=== PATIENT | female | born 1975 | race Caucasian/White ===

== ENCOUNTER 2022-01-28 17:02 | Emergency (ER) | payer SELFPAY ==
[2022-01-28 17:47] LABS: Urine Blood Negative (Negative); Urine Glucose Negative (Negative); Urine Protein 1+ (Negative); Urine pH >=9.0 (5.0-7.0)
--- NOTE | 2022-01-28 17:57 | RAD REPORT ---
EXAM DESCRIPTION: RAD - Chest Single View - 01/28/2022 5:47 pm CLINICAL HISTORY: abdominal pain Chest pain. COMPARISON: No comparisons FINDINGS: Portable technique limits examination quality. The lungs are mildly emphysematous but grossly clear. The heart is normal in size. No displaced fract ures. IMPRESSION: No acute intrathoracic process suspected.
[2022-01-28 18:02] LABS: Absolute Lymphocytes (CBC) 2.8 K/uL (0.7-4.9); Hematocrit 40.7 % (36.0-45.0); Lymphocytes % 22.9 % (15.3-44.8); MCV 93.3 fL (80-100); MPV 7.9 fL (7.6-11.3); RBC Red Blood Cell Count 4.36 M/uL (3.86-4.86)
[2022-01-28 18:13] LABS: Urine Crystals Unidentified Moderate /HPF (None Seen); Urine RBC <5 /HPF (None Seen)
[2022-01-28 18:15] LABS: Bilirubin Total 1.5 mg/dL (0.2-1.0); Potassium 3.5 mmol/L (3.5-5.1); Protein, Total 8.6 g/dL (6.4-8.2)
[2022-01-28] MEDS ORDERED: HYDROMORPHONE HCL 1 MG/ML INJ ONE (18:21)
--- NOTE | 2022-01-28 19:40 | RAD REPORT ---
EXAM DESCRIPTION: CTAbdomen Pelvis W Contrast - 01/28/2022 7:28 pm CLINICAL HISTORY: Abdominal pain. abdominal pain COMPARISON: No comparisons TECHNIQUE: Biphasic CT imaging of the abdomen and pelvis was performed with 100 ml non-ionic IV cont rast. All CT scans are performed using dose optimization technique as appropriate and may include automated exposure control or mA/KV adjustment according to patient size. FINDINGS: The lung bases are clear.Cholecystectomy. The liver, spleen, pancreas, adrenal glands are within normal limits. Small stones are present in bot h kidneys without hydronephrosis. No bowel obstruction, free air, free fluid or abscess. Sigmoid diverticulosis coli without diverticul itis. The appendix is normal. No evidence of significant lymphadenopathy. No suspicious bony findings. IMPRESSION: Sigmoid diverticulosis coli is present without diverticulitis. Small stones are present in both kidneys without hydronephrosis.
--- NOTE | 2022-01-28 20:14 | ER ---
Nurse's Notes [facility] Name: Sangeetha Iqbal Age: 46 yrs Sex: Female : 1975 Arrival Date: 01/28/2022 Time: 17:02 Bed 13 Private MD: Diagnosis: Diverticulosis of large intestine without perforation or abscess without bleeding Presentation: 01/28 17:11 Chief complaint: Chief complaint: Patient states: Abdominal pain - mid epigastric pain ld1 X 1 hour. N/V/Constipation. 17:12 Coronavirus screen: At this time, the client does not indicate any symptoms associated ld1 with coronavirus-19. Ebola Screen: No symptoms or risks identified at this time. Initial Sepsis Screen: Does the patient meet any 2 criteria? No. Patient's initial sepsis screen is negative. Does the patient have a suspected source of infection? No. Patient's initial sepsis screen is negative. Risk Assessment: Do you want to hurt yourself or someone else? Patient reports no desire to harm self or others. Onset of symptoms was January 28, 2022. 17:12 Method Of Arrival: Ambulatory ld1 17:12 Acuity: ARMANDO 3 ld1 Triage Assessment: 17:12 General: Appears in no apparent distress. uncomfortable, Behavior is anxious, crying, ld1 fussy. Pain: Complains of pain in epigastric area Pain does not radiate. Pain currently is 10 out of 10 on a pain scale. Quality of pain is described as aching, crampy, throbbing. EENT: No signs and/or symptoms were reported regarding the EENT system. Neuro: Level of Consciousness is awake, alert, obeys commands, Oriented to person, place, time, situation. Cardiovascular: Capillary refill < 3 seconds Patient's skin is warm and dry. Respiratory: Airway is patent Respiratory effort is even, unlabored. GI: Abdomen is flat, non-distended, Reports constipation, nausea, vomiting. : No signs and/or symptoms were reported regarding the genitourinary system. Derm: No signs and/or symptoms reported regarding the dermatologic system. Musculoskeletal: No signs and/or symptoms reported regarding the musculoskeletal system. Historical: - Allergies: 17:10 Codeine; ld1 - PMHx: 17:10 Diverticulitis; ld1 - PSHx: 17:10 Cholecystectomy; ld1 - Immunization history:: Adult Immunizations up to date, Client reports receiving the 2nd dose of the Covid vaccine. - Social history:: Smoking status: Patient denies any tobacco usage or history of. Patient uses street drugs, marijuana, Patient/guardian denies using alcohol. Screenin:30 Abuse screen: Denies threats or abuse. Denies injuries from another. Nutritional db screening: No deficits noted. Tuberculosis screening: No symptoms or risk factors identified. Fall Risk None identified. No fall in past 12 months (0 pts). No secondary diagnosis (0 pts). IV access (20 points). Ambulatory Aid- None/Bed Rest/Nurse Assist (0 pts). Gait- Normal/Bed Rest/Wheelchair (0 pts) Mental Status- Oriented to own ability (0 pts). Total Hernandez Fall Scale indicates No Risk (0-24 pts). Assessment: 17:30 Reassessment:. General: Appears distressed, uncomfortable, Behavior is agitated, db anxious, restless. Pain: Complains of pain in abdomen Pain began 1 hour ago. Aggravated by eating, Noted to be agitated, crying, moaning, restless. Neuro: No deficits noted. Level of Consciousness is awake, alert, obeys commands, Oriented to person, place, time, situation, Appropriate for age Gait is steady, Speech is normal, Facial symmetry appears normal. Cardiovascular: No deficits noted. Respiratory: No deficits noted. GI: Bowel sounds present X 4 quads. Abd is soft Abdomen is tender to palpation X 4 quads. : No deficits noted. No signs and/or symptoms were reported regarding the genitourinary system. EENT: No deficits noted. No signs and/or symptoms were reported regarding the EENT system. Derm: No deficits noted. No signs and/or symptoms reported regarding the dermatologic system. Musculoskeletal: No deficits noted. No signs and/or symptoms reported regarding the musculoskeletal system. 18:31 Reassessment: No changes from previously documented assessment. Patient and/or family db updated on plan of care and expected duration. Pain level reassessed. Patient is alert, oriented x 3, equal unlabored respirations, skin warm/dry/pink. Reassessment: patient states still has pain. pain medication administered. 19:49 General: Appears comfortable, Behavior is calm, cooperative. Pain: Complains of pain in ha1 epigastric area Pain does not radiate. Pain currently is 3 out of 10 on a pain scale. Alleviated by medications. Neuro: Level of Consciousness is awake, alert, obeys commands, Oriented to person, place, time, situation, Speech is normal. Cardiovascular: Patient's skin is warm and dry. Respiratory: Airway is patent Trachea midline Respiratory effort is even, unlabored, Respiratory pattern is regular, symmetrical. GI: Bowel sounds present X 4 quads. Abd is soft X 4 quads Reports epigastric pain. : No signs and/or symptoms were reported regarding the genitourinary system. Musculoskeletal: No deficits noted. No signs and/or symptoms reported regarding the musculoskeletal system. Vital Signs: 17:12 BP 129 / 101; Pulse 76; Resp 18; Temp 97.3(O); Pulse Ox 100% on R/A; Weight 66.68 kg; ld1 Height 5 ft. 1 in. (154.94 cm); Pain 10/10; 17:30 BP 162 / 87; Pulse 72; Resp 16; Pulse Ox 98% ; db 18:25 BP 170 / 96; Pulse 62; Resp 20; Pulse Ox 99% ; Pain 10/10; db 18:45 BP 136 / 75; Pulse 62; Resp 12; Pulse Ox 100% ; db 19:49 BP 110 / 72; Pulse 60; Resp 16 S; Pulse Ox 100% on R/A; ha1 17:12 Body Mass Index 27.78 (66.68 kg, 154.94 cm) ld1 [place] Coma Score: 18:25 Eye Response: spontaneous(4). Verbal Response: oriented(5). Motor Response: obeys db commands(6). Total: 15. ED Course: 17:02 Patient arrived in ED. am2 17:06 Ricky Lee PA is PHCP. cp 17:06 Ricky George MD is Attending Physician. cp 17:12 Arm band placed on right wrist. ld1 17:13 Triage completed. ld1 17:20 Almaz Wisdom, MUNA is Primary Nurse. db 17:30 Inserted saline lock: 20 gauge in left antecubital area, using aseptic technique. Blood db collected. 17:48 XRAY Chest (1 view) In Process Unspecified. EDMS 18:25 Patient has correct armband on for positive identification. Placed in gown. Bed in low db position. Side rails up X 1. 19:07 Report given to MUNA Dickey. Pulse ox on. NIBP on. Warm blanket given. db 19:29 CT Abd/Pelvis - IV Contrast Only In Process Unspecified. EDMS 20:13 Shamir Gallo MD is Referral Physician. cp 20:36 No provider procedures requiring assistance completed. IV discontinued, intact, ha1 bleeding controlled, No redness/swelling at site. Pressure dressing applied. Administered Medications: 17:40 Drug: NS 0.9% 1000 ml Route: IV; Rate: 1 bolus; Site: left antecubital; db 17:40 Drug: Pepcid (famotidine) 20 mg Route: IVP; Site: left antecubital; db 18:59 Follow up: Response: No adverse reaction db 17:40 Drug: Zofran (Ondansetron) 4 mg Route: IVP; Site: left antecubital; db 18:59 Follow up: Response: No adverse reaction db 17:40 Drug: Dilaudid (HYDROmorphone) 1 mg Route: IVP; Site: left antecubital; db 18:59 Follow up: Response: No adverse reaction db 18:25 Drug: Dilaudid (HYDROmorphone) 1 mg Route: IVP; Site: left antecubital; db 19:00 Follow up: Response: No adverse reaction db 20:25 Drug: metroNIDAZOLE 500 mg Route: PO; ha1 20:36 Follow up: Response: No adverse reaction ha1 20:25 Drug: Cipro (ciprofloxacin) 500 mg Route: PO; ha1 20:36 Follow up: Response: No adverse reaction ha1 Medication: 17:30 VIS not applicable for this client. db Outcome: 20:14 Discharge ordered by . cp 20:37 Discharged to home ambulatory, with family. ha1 20:37 Condition: stable 20:37 Discharge instructions given to patient, Instructed on discharge instructions, follow up and referral plans. medication usage, Demonstrated understanding of instructions, follow-up care, medications, Prescriptions given X 4. 20:38 Patient left the ED. ha1 Signatures: Dispatcher [employer] EDNY Ricky Lee PA PA cp Rhianna Borrego am2 Bettina Rodríguez RN RN ld1 Keli Sanchez RN RN ha1 Almaz Wisdom RN RN db Corrections: (The following items were deleted from the chart) 17:13 17:11 Chief complaint: ld1 ld1
--- NOTE | 2022-01-28 20:14 | EDPHYS ---
Physician Documentation [facility] Name: Sangeetha Iqbal Age: 46 yrs Sex: Female : 1975 Arrival Date: 01/28/2022 Time: 17:02 Bed 13 Private MD: ANNA MARIE Physician Ricky George HPI: 01/28 17:40 This 46 yrs old Female presents to ER via Ambulatory with complaints of Abdominal Pain. cp 17:40 The patient presents with abdominal pain in the epigastric area, in the upper abdomen. cp Onset: The symptoms/episode began/occurred 1 hour(s) ago. The symptoms do not radiate. Associated signs and symptoms: Pertinent positives: nausea, Pertinent negatives: blood in stools, constipation, diarrhea, dysuria, fever, vomiting. The symptoms are described as constant. Severity of pain: in the emergency department the pain is actually worse markedly. Historical: - Allergies: 17:10 Codeine; ld1 - PMHx: 17:10 Diverticulitis; ld1 - PSHx: 17:10 Cholecystectomy; ld1 - Immunization history:: Adult Immunizations up to date, Client reports receiving the 2nd dose of the Covid vaccine. - Social history:: Smoking status: Patient denies any tobacco usage or history of. Patient uses street drugs, marijuana, Patient/guardian denies using alcohol. ROS: 17:45 Constitutional: Negative for body aches, chills, fever, poor PO intake. cp 17:45 Eyes: Negative for injury, pain, redness, and discharge. cp 17:45 ENT: Negative for drainage from ear(s), ear pain, sore throat, difficulty swallowing, difficulty handling secretions. 17:45 Cardiovascular: Negative for chest pain, edema, palpitations. 17:45 Respiratory: Negative for cough, shortness of breath, wheezing. 17:45 Abdomen/GI: Positive for abdominal pain, nausea, Negative for vomiting, diarrhea, constipation. 17:45 Back: Negative for radiated pain. 17:45 : Negative for urinary symptoms, vaginal bleeding, vaginal discharge. 17:45 Skin: Negative for cellulitis. 17:45 Neuro: Negative for altered mental status, headache, weakness. 17:45 All other systems are negative. Exam: 17:55 Constitutional: The patient appears in no acute distress, alert, awake, non-toxic, well cp developed, well nourished. 17:55 Head/Face: Normocephalic, atraumatic. cp 17:55 Eyes: Periorbital structures: appear normal, Conjunctiva: normal, no exudate, no injection, Sclera: no appreciated abnormality, Lids and lashes: appear normal, bilaterally. 17:55 ENT: External ear(s): are unremarkable, Nose: is normal, Mouth: Lips: moist, Oral mucosa: moist, Posterior pharynx: Airway: no evidence of obstruction, patent. 17:55 Chest/axilla: Inspection: normal, Palpation: is normal, no crepitus, no tenderness. 17:55 Cardiovascular: Rate: normal, Rhythm: regular. 17:55 Respiratory: the patient does not display signs of respiratory distress, Respirations: normal, no use of accessory muscles, no retractions, labored breathing, is not present, Breath sounds: are clear throughout, no decreased breath sounds, no stridor, no wheezing. 17:55 Abdomen/GI: Inspection: distension, is not seen, Bowel sounds: active, all quadrants, Palpation: soft, in all quadrants, severe abdominal tenderness, in the epigastric area, right upper quadrant and left upper quadrant, rebound tenderness, is not appreciated, involuntary guarding, is not appreciated. 17:55 Back: pain, is absent, ROM is normal. 17:55 Neuro: Orientation: to person, place \T\ time. Mentation: is normal, Motor: moves all fours, strength is normal, Sensation: is normal. 17:55 Special observations: complaints out of proportion to exam. Vital Signs: 17:12 BP 129 / 101; Pulse 76; Resp 18; Temp 97.3(O); Pulse Ox 100% on R/A; Weight 66.68 kg; ld1 Height 5 ft. 1 in. (154.94 cm); Pain 10/10; 17:30 BP 162 / 87; Pulse 72; Resp 16; Pulse Ox 98% ; db 18:25 BP 170 / 96; Pulse 62; Resp 20; Pulse Ox 99% ; Pain 10/10; db 18:45 BP 136 / 75; Pulse 62; Resp 12; Pulse Ox 100% ; db 19:49 BP 110 / 72; Pulse 60; Resp 16 S; Pulse Ox 100% on R/A; ha1 17:12 Body Mass Index 27.78 (66.68 kg, 154.94 cm) ld1 [place] Coma Score: 18:25 Eye Response: spontaneous(4). Verbal Response: oriented(5). Motor Response: obeys db commands(6). Total: 15. MDM: 17:15 Patient medically screened. cp 18:00 Differential diagnosis: appendicitis, diverticulitis, gastritis, non-specific abd pain, cp pancreatitis, Pyelonephritis, Ureterolithiasis, urinary tract infection. 20:14 Data reviewed: vital signs, nurses notes, lab test result(s), radiologic studies, CT cp scan. 20:14 Counseling: I had a detailed discussion with the patient and/or guardian regarding: the cp historical points, exam findings, and any diagnostic results supporting the discharge/admit diagnosis, lab results, radiology results, to return to the emergency department if symptoms worsen or persist or if there are any questions or concerns that arise at home. Response to treatment: the patient's symptoms have markedly improved after treatment, and as a result, I will discharge patient. Special discussion: Based on the patient's Hx, exam, and Dx evaluation, there is no indication for emergent surgery or inpatient Tx. It is understood by the patient/guardian that if the Sx's persist or worsen they need to return immediately for re-evaluation. 01/28 17:26 Order name: CBC with Diff; Complete Time: 18:38 cp 01/28 19:56 Interpretation: Normal except: WBC 12.10; NEUT A 8.2. cp 01/28 17:26 Order name: CMP; Complete Time: 18:18 cp 01/28 19:57 Interpretation: GLUC 129; BILIT 1.5; TP 8.6; GLOB 4.6; A/G 0.9; Reviewed. cp 01/28 17:26 Order name: Lipase; Complete Time: 18:18 cp 01/28 17:26 Order name: Urine Microscopic Only; Complete Time: 18:18 cp 01/28 17:47 Order name: Urine Dipstick-Ancillary; Complete Time: 18:07 EDMS 01/28 18:08 Interpretation: Normal except: UKET 1+; UPROT 1+. cp 01/28 17:56 Order name: Urine --Ancillary (enter results) bd 01/28 17:26 Order name: XRAY Chest (1 view); Complete Time: 18:07 cp 01/28 18:08 Interpretation: Report reviewed. cp 01/28 17:47 Order name: CT Abd/Pelvis - IV Contrast Only; Complete Time: 19:47 cp 01/28 19:48 Interpretation: Report reviewed. cp 01/28 17:26 Order name: IV Saline Lock; Complete Time: 17:50 cp 01/28 17:26 Order name: Labs collected and sent; Complete Time: 17:50 cp 01/28 19:51 Order name: PO challenge; Complete Time: 20:33 cp Administered Medications: 17:40 Drug: NS 0.9% 1000 ml Route: IV; Rate: 1 bolus; Site: left antecubital; db 17:40 Drug: Pepcid (famotidine) 20 mg Route: IVP; Site: left antecubital; db 18:59 Follow up: Response: No adverse reaction db 17:40 Drug: Zofran (Ondansetron) 4 mg Route: IVP; Site: left antecubital; db 18:59 Follow up: Response: No adverse reaction db 17:40 Drug: Dilaudid (HYDROmorphone) 1 mg Route: IVP; Site: left antecubital; db 18:59 Follow up: Response: No adverse reaction db 18:25 Drug: Dilaudid (HYDROmorphone) 1 mg Route: IVP; Site: left antecubital; db 19:00 Follow up: Response: No adverse reaction db 20:25 Drug: metroNIDAZOLE 500 mg Route: PO; ha1 20:36 Follow up: Response: No adverse reaction ha1 20:25 Drug: Cipro (ciprofloxacin) 500 mg Route: PO; ha1 20:36 Follow up: Response: No adverse reaction ha1 Disposition Summary: 01/28/22 20:14 Discharge Ordered Location: Home cp Problem: new cp Symptoms: have improved cp Condition: Stable cp Diagnosis - Diverticulosis of large intestine without perforation or abscess without bleeding cp Followup: cp - With: Shamri Gallo MD - When: 1 - 2 days - Reason: Recheck today's complaints Discharge Instructions: - Discharge Summary Sheet cp - High-Fiber Diet cp - Diverticulosis cp Forms: - Medication Reconciliation Form cp - Thank You Letter cp - Antibiotic Education cp - Prescription Opioid Use cp Prescriptions: - Zofran 4 mg Oral Tablet - take 1 tablet by ORAL route every 12 hours As needed; 20 tablet; Refills: 0, cp Product Selection Permitted - Cipro 500 mg Oral Tablet - take 1 tablet by ORAL route every 12 hours for 10 days; 20 tablet; Refills: 0, cp Product Selection Permitted - Metronidazole 500 mg Oral Tablet - take 1 tablet by ORAL route every 8 hours; 30 tablet; Refills: 0, Product cp Selection Permitted - dicyclomine 20 mg Oral Tablet - take 1 tablet by ORAL route 4 times per day; 30 tablet; Refills: 0, Product cp Selection Permitted Signatures: Dispatcher [employer] EDMS Ricky Lee PA PA cp Bettina Rodríguez RN RN ld1 Keli Sanchez RN RN ha1 Almaz Wisdom RN RN db Corrections: (The following items were deleted from the chart) 19:57 19:56 GLUC 129; Reviewed. cp cp 19:57 19:57 GLUC 129; BILIT 1.5; Reviewed. cp cp 19:57 19:57 GLUC 129; BILIT 1.5; TP 8.6; Reviewed. cp cp 19:57 19:57 GLUC 129; BILIT 1.5; TP 8.6; GLOB 4.6; Reviewed. cp cp
[2022-01-28] MEDS ORDERED: METRONIDAZOLE 500mg IVPB 0 MG/0 ML BAG IV ONE (20:23)
[2022-01-28] MEDS ORDERED: CIPROFLOXACIN HCL 500 MG TAB ONE (20:23)
[2022-01-28] MEDS ORDERED: metroNIDAZOLE 500 MG TABLET ONE (20:25)
[2022-01-28 20:49] VITALS: TEMP 97.3
[2022-01-28 20:53] VITALS: O2SAT 100
[2022-01-28 20:54] VITALS: BP 110/72
== END 2022-01-28 20:38 | disposition home or self-care (01) ==
LOC: ER 17:02
DX: K57.30 Diverticulosis of large intestine without perforation or abscess without bleeding (principal); Z88.5 Allergy status to narcotic agent
CPT/HCPCS: 36415; 71045; 74177; 80053; 81003; 81015; 81025; 83690; 85025; 96374; 96375; 99284; J1170; Q9967